=== PATIENT | female | born 1965 | race Caucasian/White ===

== ENCOUNTER → 2018-01-15 | Emergency (ER) | payer OTHER ==
[~2018-01-15] VITALS: Ht 152.4 cm; Wt 60.3 kg
[~2018-01-15] MED LIST: CEFUROXIME500 MG; CLARITIN10 M1; PLAVIX75 MG; SYNTHROID50 MCG
== END | disposition home or self-care (01) ==
LOC: ER
DX: M75.51 Bursitis of right shoulder (principal)